=== PATIENT | female | born 2000 | race Hispanic/Latino ===

== ENCOUNTER 2022-01-16 19:00 | Emergency (ER) | payer OTHER ==
[~2022-01-16] VITALS: Ht 165.1 cm; Wt 51.7 kg
[2022-01-17] MEDS ORDERED: LIDOCAINE HCL 1% 20 ML VIAL ONE (01:49)
[2022-01-17] MEDS ORDERED: LIDOCAINE HCL MPF 1% 5ML VIAL IM SCH (02:00)
[2022-01-17] MEDS ORDERED: SULFAMETHOX-TMP DS 800/160 TAB PO SCH (06:00)
[2022-01-17] MEDS ORDERED: CLINDAMYCIN 150 MG CAP PO ONE (06:00)
[2022-01-17 06:30] VITALS: BP 99/56
[2022-01-17] MEDS ORDERED: CLIN-141 PO (06:43)
[2022-01-17] MEDS ORDERED: SULF1TAB42 PO (06:44)
== END 2022-01-17 06:55 | disposition home or self-care (01) ==
LOC: EDH 19:00
DX: L02.211 Cutaneous abscess of abdominal wall (principal); D64.9 Anemia, unspecified; E11.9 Type 2 diabetes mellitus without complications; Z98.890 Other specified postprocedural states
CPT/HCPCS: 99285; 10060; J3490